=== PATIENT | female | born 1990 | race Caucasian/White ===

== ENCOUNTER 2022-11-18 09:17 | Day surgery (SDC) | payer MEDICAID ==
[2022-11-12 15:54] LABS: BASOPHILS % (AUTO) 0.3 % (0-1); EOSINOPHILS # (AUTO) 0.1 X10'3 (0-0.9); EOSINOPHILS % (AUTO) 0.6 % (0-6); HCG SERUM QL NEGATIVE; LYMPHOCYTES # (AUTO) 2.2 X10'3 (1.1-4.8); LYMPHOCYTES % (AUTO) 25.1 % (21-51); MEAN CORPUSCULAR HEMOGLOBIN 31.4 PG (27.0-31.0); MEAN CORPUSCULAR HGB CONC 33.7 g/dL (33.0-36.5); MEAN CORPUSCULAR VOLUME 93.1 FL (78-98); MEAN PLATELET VOLUME 8.3 FL (7.4-10.4); MONOCYTES # (AUTO) 0.6 X10'3 (0-0.9); MONOCYTES % (AUTO) 7.2 % (2-12); NEUTROPHILS % (AUTO) 66.8 % (42-75); PRE OP HEMATOCRIT 41.3 % (35.0-45.0); PRE OP HEMOGLOBIN 13.9 g/dL (12.0-16.0); PRE OP PLATELET COUNT 322 X10'3 (140-440); RED BLOOD COUNT 4.44 X10'6 (4.20-5.60); RED CELL DISTRIBUTION WIDTH 12.4 % (11.5-14.5)
[2022-11-12 15:56] LABS: ALBUMIN 3.9 G/DL (3.4-5.0); ALKALINE PHOSPHATASE 41 IU/L (46-116); BLOOD UREA NITROGEN 12 MG/DL (7-18); BUN/CREATININE RATIO 13.8 (10.0-20.0); CALCIUM 9.2 MG/DL (8.5-10.1); CHLORIDE 103 MMOL/L (99-107); CREATININE 0.87 MG/DL (0.40-0.90); PRE OP ALT 34 U/L (30-65); PRE OP ANION GAP 9 (8-16); PRE OP AST 20 U/L (10-37); PRE OP BILIRUB, TOTAL 0.6 MG/DL (0.0-1.0); PRE OP GLUCOSE 83 MG/DL (70-104); PRE OP POTASSIUM 3.7 MMOL/L (3.4-5.1); PRE OP SODIUM 141 MMOL/L (135-145); TOTAL CARBON DIOXIDE 29.4 MMOL/L (24-32); TOTAL PROTEIN 7.7 G/DL (6.4-8.2); eGFR 75 ML/MIN
[2022-11-18] VITALS (8 sets, daily range): BP systolic 114–123; BP diastolic 65–85
[~2022-11-18] VITALS: Ht 172.7 cm; Wt 86.0 kg
[~2022-11-18 09:17] MED LIST: NO HOME MEDS; famotidine 20mg tablet PO ONE; ringers solution, lacted 1,000 ML IV SCH
[2022-11-18] MEDS ORDERED: famotidine 20mg tablet PO ONE (09:45)
[2022-11-18 10:34] LABS: HCG SERUM QL NEGATIVE
[2022-11-18] MEDS ORDERED: propofol inj 20 ML IV ONE (11:04)
[2022-11-18] MEDS ORDERED: fentaNYL/PF 50MCG/1 ML 2ML syringe ONE (11:04)
[2022-11-18] MEDS ORDERED: midazolam 1 mg/ML 2ml injection ONE (11:04)
[2022-11-18] MEDS ORDERED: rocuronium 10mg/ml inj IV ONE (11:05)
[2022-11-18] MEDS ORDERED: BUPIVAcaine/PF 2.5 mg/ml (0.25%) 30ml vial ONE (11:06)
[2022-11-18] MEDS ORDERED: sevoflurane 250ml liquid IH ONE (11:07)
[2022-11-18] MEDS ORDERED: dexamethasone sod phosphate 4mg/ml inj. ONE (11:28)
[2022-11-18] MEDS ORDERED: morphine 4 MG/ML inj SYRINge IV PRN (11:35)
[2022-11-18] MEDS ORDERED: morphine 2 MG/ML inj. syringe IV PRN (11:35)
[2022-11-18] MEDS ORDERED: ondansetron/PF 4mg/2ml inj IV PRN (11:35)
[2022-11-18] MEDS ORDERED: ringers solution, lacted 1,000 ML IV SCH (11:35)
[2022-11-18] MEDS ORDERED: proCHLORperazine 10 MG/2 ml inj IV PRN (11:35)
[2022-11-18] MEDS ORDERED: meperidine/PF 25mg/ml syringe IV PRN ×2 (11:35)
[2022-11-18] MEDS ORDERED: BUPIVAcaine/PF 2.5 mg/ml (0.25%) 30ml vial IJ ONE (11:43)
[2022-11-18] MEDS ORDERED: ondansetron/PF 4mg/2ml inj ONE (11:56)
[2022-11-18] MEDS ORDERED: neostigmine methylsulfate 1 MG/ML 10ml vial ONE (11:57)
[2022-11-18] MEDS ORDERED: glycopyrrolate 0.2mg/ml inj ONE (12:00)
[2022-11-18] MEDS ORDERED: ketorolac trometh. 30mg/ml inj. ONE (12:00)
--- NOTE | 2022-11-18 12:16 | NUR ---
Received from OR via [facility] TO RECOVERY ROOM BED 6, accompanied by Anesthesiologist DR [email or web address] and report given by Anesthesiolgist. PT PRESENTS WITH PIV 20G RIGHT FOREARM, SPO2 100% 10L MASK,LR RUNNING AT 100MLS/HR, VSS. Addendum: 11/18/22 at 1228 by Karma Gomes RN, RN Amended: Links added.
[2022-11-18] MEDS: meperidine/PF 25mg/ml syringe IV PRN ×3 (12:31→13:10)
[2022-11-18] MEDS ORDERED: oxyCODONE/APAP 10/325mg tablet PO ONE (12:40)
--- NOTE | 2022-11-18 13:26 | NUR ---
ABLE TO SAFELY AMBULATE AND TRANSFER SELF. IV TAKEN OUT WITHOUT ANY COMPLICATIONS. ALL DISCHARGE INSTRUCTIONS COVERED WITH PATIENT AND ALL QUESTIONS ANSWERED. PATIENT TAKEN OUT VIA WHEELCHAIR TO PERSONAL VEHICLE WHERE FAMILY/FRIEND DROVE PATIENT HOME. Addendum: 11/18/22 at 1332 by Karma Gomes RN, RN Amended: Links added.
== END 2022-11-18 13:26 | disposition home or self-care (01) ==
LOC: PAS 09:17
PROVIDERS: ATTEND Obstetrics & Gynecology
DX: Z30.2 Encounter for sterilization (principal); K66.0 Peritoneal adhesions (postprocedural) (postinfection); F32.A Depression, unspecified; F41.9 Anxiety disorder, unspecified; Z98.890 Other specified postprocedural states; Z79.899 Other long term (current) drug therapy
CPT/HCPCS: 36415; 58670; 80053; 82948; 84703; 85025; J1100; J1885; J2175; J2250; J2405; J2704; J2710; J3010; J3490; J7030; J7120; Z7506; Z7508; Z7512; A4618